=== PATIENT | female | born 1930 | race Caucasian/White ===

== ENCOUNTER 2019-12-27 09:19 | Emergency (ER) | payer MEDICARE ==
--- NOTE | 2019-12-27 11:30 | RAD ---
TWO VIEWS LEFT HIP: COMPARISON: None. HISTORY: Left hip injury with pain. FINDINGS: Two views of the left hip show no evidence of acute fracture or dislocation. No degenerative changes are seen. Vascular calcifications are present. IMPRESSION: No evidence of acute osseous abnormality. POS: [facility]
== END 2019-12-27 11:00 | disposition home or self-care (01) ==
LOC: MADERS 09:19
DX: S76.012A Strain of muscle, fascia and tendon of left hip, initial encounter (principal); W18.30XA Fall on same level, unspecified, initial encounter

== ENCOUNTER 2020-05-26 13:59 | Emergency (ER) | payer MEDICARE ==
[2020-05-26 14:46] LABS: #Basophils 0.1 thou/uL (0.0-0.2); #Eosinphils 0.1 thou/uL (0.0-0.7); #Lymphocytes 2.4 thou/uL (1.20-3.40); #Monocytes 0.4 thou/uL (0.11-0.59); %Basophils 0.7 % (0.0-1.0); %Lymphocytes 23.9 % (21.0-51.0); %Monocytes 4.3 % (0.0-10.0); %Neutrophils 70.1 % (42.0-75.0); Hemoglobin 11.8 g/dL (12.0-16.0); Mean Corpuscular HGB CONC 33.8 g/dL (32.0-36.0); Mean Corpuscular Hemoglobin 31.3 pg (27.0-31.0); Mean Corpuscular Volume 92.5 fL (78.0-98.0); Platelet Count 203 thou/uL (130-400); Red Blood Cell (RBC) Count 3.77 mill/uL (4.20-5.40)
[2020-05-26 14:54] LABS: Prothrombin Time 12.9 sec (12.0-14.7)
[2020-05-26 15:04] LABS: ALT (SGPT) 15 U/L (8-55); AST (SGOT) 25 U/L (5-34); Albumin 3.2 g/dL (3.4-4.8); Alkaline Phosphatase 74 U/L (40-110); Anion Gap 15 mmol/L (10-20); BUN (Urea Nitrogen) 8 mg/dL (9.8-20.1); Bilirubin, Total 0.5 mg/dL (0.2-1.2); Calc. Creatinine Clearance 0 mL/min (70-130); Calcium 8.6 mg/dL (7.8-10.44); Carbon Dioxide 25 mmol/L (23-31); Chloride 98 mmol/L (98-107); Estimated GFR-MDRD 73; Globulin 3.6 g/dL (2.4-3.5); Glucose 95 mg/dL (83-110); Potassium 4.7 mmol/L (3.5-5.1); Protein, Total 6.8 g/dL (6.0-8.3); Sodium 133 mmol/L (136-145)
[2020-05-26] MEDS ORDERED: Boostrix 0.5 ML (Tdap) VIAL ONE (15:05)
[2020-05-26] MEDS ORDERED: Lidocaine 1% w/Epinephrine 1:100K 20 ML VIAL ONE (15:05)
--- NOTE | 2020-05-26 15:19 | RAD ---
Exam: Chest one view HISTORY:Fall. Pain. Comparison: None FINDINGS: Cardiac silhouette: Normal Aorta: Unremarkable Pulmonary vessels: Normal Costophrenic angles: Clear LUNGS: Chronic lung parenchymal changes. No masses or consolidation. There is diffuse bony mineraliza tion. Pneumothorax: None Osseous abnormalities: Diffuse bone utilization. Presumed multiple remote compression deformities of the thoracic and lumbar spine. IMPRESSION: No acute cardiopulmonary process.
--- NOTE | 2020-05-26 15:20 | CT ---
CT BRAIN WITHOUT CONTRAST: Date: 05/26/2020 HISTORY: Fall. Headache. FINDINGS: There are changes of cortical atrophy and chronic small vessel ischemic disease. The ventricular size is appropriate and the basilar cisterns are patent. No evidence of acute infarct, hemorrhage, midline shift, or abnormal extra-axial fluid collections ar e seen. The bony calvarium is intact. The visualized paranasal sinuses and mastoid air cells are well aerated. IMPRESSION: No CT evidence of acute intracranial process. POS: [facility]
--- NOTE | 2020-05-26 15:20 | RAD ---
Exam: 2 views lumbar spine HISTORY: Fall. Pain FINDINGS: Diffuse bony mineralization. There appear to be multiple compression fractures involving th e distal thoracic and lumbar spine. There appears be vertebra plana at L1. Moderate loss of vertebral body height at L2, L3 and T12. Additionally there is moderate loss of vertebral height at T 10. Given the overall diffuse nature of the bony mineralization of the thoracic and lumbar spine, there is point tenderness and a concern for fracture noncontrast MRI can be performed. Visualized sacrum and bony pelvis appear to be intact IMPRESSION: 1. No obvious acute fracture. There is diffuse bone demineralization which limits evaluation. If ther e is concern for acute on chronic injury, consider MRI.
--- NOTE | 2020-05-26 15:22 | CT ---
CT CERVICAL SPINE WITHOUT CONTRAST: Date: 05/26/2020 HISTORY: Fall. FINDINGS/IMPRESSION: Multilevel degenerative changes are present. No acute fracture, subluxation, or facet malalignment is seen. There is scarring in the lung apices. There is a 1.0 cm nodule in the left upper lobe. This should be evaluated with a PET scan. CODE T. CODE LN.
--- NOTE | 2020-05-26 15:27 | RAD ---
Exam: Pelvis 1 view HISTORY: Pain. Fall. FINDINGS: Diffuse bone demineralization. Limited option the sacral ala and iliac wings. No definite p elvic fracture. Symmetric hip joint spaces. Visualized left and right femur are intact. Obturator rings are intact. Atherosclerosis is noted IMPRESSION: No radiographic evidence of fracture. Additional imaging if clinically concern for possib le radiographically occult fracture.
[2020-05-26] MEDS ORDERED: Ibuprofen 600 MG TAB ONE (15:57)
--- NOTE | 2020-05-26 16:52 | CT ---
CT right hip noncontrast HISTORY: Fall. Injury. FINDINGS: Mild joint space narrowing, osteophytosis, and subchondral sclerosis. Femoral head contour is maintained. No acute fracture or dislocation are apparent. Diverticula arise from the colon partially visualized. Calcification in the arterial structures. 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 No evidence of fracture. Atherosclerosis.
== END 2020-05-26 18:00 | disposition short-term general hospital (02) ==
LOC: MADERS 13:59
DX: S01.01XA Laceration without foreign body of scalp, initial encounter (principal); R55 Syncope and collapse; R91.1 Solitary pulmonary nodule; W19.XXXA Unspecified fall, initial encounter; Y92.89 Other specified places as the place of occurrence of the external cause
CPT/HCPCS: 70450; 71045; 72100; 72125; 72170; 80053; 83880; 84484; 85025; 85610; 90715; 93005

== ENCOUNTER 2020-06-26 19:23 | Emergency (ER) | payer MEDICARE ==
[2020-06-26 20:31] LABS: #Basophils 0.1 thou/uL (0.0-0.2); #Eosinphils 0.3 thou/uL (0.0-0.7); #Lymphocytes 2.9 thou/uL (1.20-3.40); #Monocytes 0.6 thou/uL (0.11-0.59); #Neutrophils 2.4 thou/uL (1.40-6.50); %Basophils 1.5 % (0.0-1.0); %Eosinophils 4.4 % (0.0-10.0); %Lymphocytes 46.8 % (21.0-51.0); %Neutrophils 38.3 % (42.0-75.0); Hemoglobin 12.5 g/dL (12.0-16.0); Mean Corpuscular HGB CONC 32.2 g/dL (32.0-36.0); Mean Corpuscular Volume 96.4 fL (78.0-98.0); Mean Platelet Volume 7.9 fL (7.4-10.4); Platelet Count 145 thou/uL (130-400); RBC Distribution Width 11.7 % (11.5-14.5); Red Blood Cell (RBC) Count 4.02 mill/uL (4.20-5.40); White Blood Cell (WBC) Count 6.2 thou/uL (4.8-10.8)
[2020-06-26] MEDS ORDERED: Acetaminophen 500 MG TAB ONE (20:31)
--- NOTE | 2020-06-26 20:32 | RAD ---
PORTABLE CHEST: 06/26/20 HISTORY: Altered mental status. COMPARISON: 05/26/20 exam. Heart size appears borderline in size considering portable technique. Chronic appearing lung changes are seen without focal infiltrative process. IMPRESSION: Chronic appearing lung change. POS: OFF
[2020-06-26 20:43] LABS: ALT (SGPT) 8 U/L (8-55); AST (SGOT) 24 U/L (5-34); Albumin 3.5 g/dL (3.4-4.8); Alkaline Phosphatase 122 U/L (40-110); Anion Gap 14 mmol/L (10-20); BUN (Urea Nitrogen) 10 mg/dL (9.8-20.1); Bilirubin, Total 0.5 mg/dL (0.2-1.2); CK (CPK) 38 U/L (29-168); Calc. Creatinine Clearance 0 mL/min (70-130); Calcium 8.7 mg/dL (7.8-10.44); Carbon Dioxide 25 mmol/L (23-31); Chloride 98 mmol/L (98-107); Estimated GFR-MDRD 75; Globulin 3.6 g/dL (2.4-3.5); Glucose 95 mg/dL (83-110); Potassium 4.2 mmol/L (3.5-5.1); Protein, Total 7.1 g/dL (6.0-8.3); Sodium 133 mmol/L (136-145)
[2020-06-26 21:11] LABS: Bilirubin Negative (Negative); Blood, Urine Trace (Negative); Clarity Clear (Clear); Glucose, Urine (Dipstick) Negative (Negative); Ketone, Urine Negative (Negative); Leukocyte Negative (Negative); Nitrite Negative (Negative); Protein, Urine (Dipstick) Negative (Neg-Trace); Urobilinogen 0.2 mg/dL (Less than 2)
[2020-06-26 21:27] LABS: Bacteria/HPF Rare-Few HPF (None Seen); RBC/HPF 0-3 HPF (0-3); Squamous Epithelial None Seen HPF (0-3)
[2020-06-26] MEDS ORDERED: Sodium Chloride 0.9% 1,000 ML ONE (21:35)
--- NOTE | 2020-06-26 21:56 | CT ---
CT OF BRAIN PERFORMED WITHOUT CONTRAST ENHANCEMENT: 06/26/20 HISTORY: Altered mental status. COMPARISON: 05/26/20 study. There is moderate atrophy and chronic white matter changes seen. There is no signs of intracerebral h emorrhage or extra-axial fluid collections. The mastoid air cells and visualized sinuses are clear. IMPRESSION: No acute intracranial abnormalities. POS: OFF
[2020-06-26] MEDS ORDERED: cefTRIAXone\\ROCEPHIN 1 GM VIAL ONE (22:14)
[2020-06-26] MEDS ORDERED: Sodium Chloride 0.9% 100 ML ONE (22:14)
== END 2020-06-26 22:37 | disposition home or self-care (01) ==
LOC: MADERS 19:23
DX: E86.0 Dehydration (principal); N39.0 Urinary tract infection, site not specified
CPT/HCPCS: 51701; 70450; 71045; 80053; 81003; 81015; 82550; 84443; 85025; 87086; 94760; 96374; J0696; J3490; J7050

== ENCOUNTER 2021-12-20 09:18 | Emergency (ER) | payer MEDICARE | END 2021-12-20 10:55 | disposition home or self-care (01) | LOC: MADERS 09:18 | DX: S83.92XA Sprain of unspecified site of left knee, initial encounter (principal); S80.12XA Contusion of left lower leg, initial encounter; G40.909 Epilepsy, unspecified, not intractable, without status epilepticus; W19.XXXA Unspecified fall, initial encounter ==

== ENCOUNTER 2022-02-28 16:22 | Outpatient (CLI) | payer MEDICARE | END 2022-02-28 16:23 | disposition home or self-care (01) | LOC: MADRAD 16:22 | PROVIDERS: ATTEND Physician Assistant | DX: R05.9 Cough, unspecified (principal) | CPT/HCPCS: 71046 ==

== ENCOUNTER 2022-04-23 08:49 | Emergency (ER) | payer MEDICARE ==
[2022-04-23] MEDS ORDERED: Sodium Chloride 0.9% 1,000 ML ONE (09:51)
[2022-04-23] MEDS ORDERED: Morphine 2 MG/ML VIAL ONE (09:51)
[2022-04-23 10:05] LABS: #Basophils 0.1 thou/uL (0.0-0.2); #Eosinphils 0.1 thou/uL (0.0-0.7); #Lymphocytes 1.1 thou/uL (1.20-3.40); #Monocytes 0.6 thou/uL (0.11-0.59); #Neutrophils 7.6 thou/uL (1.40-6.50); %Basophils 0.9 % (0.0-1.0); %Eosinophils 0.6 % (0.0-10.0); %Lymphocytes 11.3 % (21.0-51.0); %Monocytes 6.5 % (0.0-10.0); %Neutrophils 80.7 % (42.0-75.0); Hemoglobin 11.5 g/dL (12.0-16.0); Mean Corpuscular HGB CONC 32.6 g/dL (32.0-36.0); Mean Corpuscular Hemoglobin 31.9 pg (27.0-31.0); Mean Corpuscular Volume 97.8 fL (78.0-98.0); Mean Platelet Volume 7.8 fL (7.4-10.4); Platelet Count 97 thou/uL (130-400); RBC Distribution Width 12.3 % (11.5-14.5); Red Blood Cell (RBC) Count 3.61 mill/uL (4.20-5.40); White Blood Cell (WBC) Count 9.5 thou/uL (4.8-10.8)
[2022-04-23 10:06] LABS: Hypochromia SLIGHT = 6-15 cells (100X) (0-5/hpf); MDiff Complete? YES; Platelet Morphology Comment Appears Decreased
[2022-04-23 10:10] LABS: Anion Gap 12 mmol/L (10-20); BUN (Urea Nitrogen) 17 mg/dL (9.8-20.1); Calc. Creatinine Clearance 0 mL/min (70-130); Calcium 8.5 mg/dL (7.8-10.44); Carbon Dioxide 24 mmol/L (23-31); Chloride 108 mmol/L (98-107); Estimated GFR 79; Glucose 114 mg/dL (83-110); Sodium 140 mmol/L (136-145)
[2022-04-23 10:52] LABS: Bilirubin Negative (Negative); Blood, Urine Moderate (Negative); Clarity Cloudy (Clear); Glucose, Urine (Dipstick) Negative (Negative); Ketone, Urine 15 mg/dL (Negative); Leukocyte Large (Negative); Nitrite Positive (Negative); Protein, Urine (Dipstick) 30 mg/dL (Neg-Trace); Specific Gravity, Urine 1.025 (1.005-1.030); pH, Urine 5.5 (5.0-9.0)
[2022-04-23 11:02] LABS: Bacteria/HPF 4+ HPF (None Seen); RBC/HPF 21-50 HPF (0-3); Squamous Epithelial None Seen HPF (0-3); WBC/HPF Greater Than 50 HPF (0-3)
[2022-04-23] MEDS ORDERED: cefTRIAXone\\ROCEPHIN 1 GM VIAL ONE (14:05)
[2022-04-23] MEDS ORDERED: Sodium Chloride 0.9% 100 ML ONE (14:05)
== END 2022-04-23 14:38 | disposition short-term general hospital (02) ==
LOC: MADERS 08:49
DX: S72.012A Unspecified intracapsular fracture of left femur, initial encounter for closed fracture (principal); S32.10XA Unspecified fracture of sacrum, initial encounter for closed fracture; W18.30XA Fall on same level, unspecified, initial encounter; Z95.0 Presence of cardiac pacemaker
CPT/HCPCS: 36415; 51702; 71045; 72192; 80048; 81003; 81015; 83605; 85025; 93005; 96365; 96375; J0696; J2270; J3490; J7050

== ENCOUNTER 2022-04-29 15:06 | Inpatient (IN) | payer MEDICARE ==
[2022-04-29 15:45] VITALS: BMI 16.2
[2022-04-29] MEDS: Acetaminophen 325 MG TAB PO SCH (18:06)
[2022-04-29] MEDS: Aspirin 81 mg Enteric Coated Tablet PO SCH (21:48)
[2022-04-29] MEDS: Senokot S 8.6-50 MG TAB PO SCH (21:48)
[2022-04-30] MEDS: Acetaminophen 325 MG TAB PO SCH (01:08)
[2022-04-30] MEDS: Ascorbic Acid 500 mg Chewable Tablet PO SCH (08:42)
[2022-04-30] MEDS: Aspirin 81 mg Enteric Coated Tablet PO SCH ×2 (08:42→22:03)
[2022-04-30] MEDS: Senokot S 8.6-50 MG TAB PO SCH ×3 (08:45→22:03)
[2022-04-30 08:48] LABS: Hemoglobin 7.2 g/dL (12.0-16.0); Mean Corpuscular HGB CONC 33.6 g/dL (32.0-36.0); Mean Corpuscular Hemoglobin 33.3 pg (27.0-31.0); Mean Platelet Volume 7.5 fL (7.4-10.4); Platelet Count 180 thou/uL (130-400); RBC Distribution Width 15.1 % (11.5-14.5); Red Blood Cell (RBC) Count 2.18 mill/uL (4.20-5.40); White Blood Cell (WBC) Count 8.9 thou/uL (4.8-10.8)
[2022-04-30] MEDS ORDERED: Ferrous Sulfate 325 MG TAB PO SCH (09:00)
[2022-04-30 09:02] LABS: Anion Gap 9 mmol/L (10-20); BUN (Urea Nitrogen) 14 mg/dL (9.8-20.1); Calc. Creatinine Clearance 49 mL/min (70-130); Calcium 7.6 mg/dL (7.8-10.44); Carbon Dioxide 26 mmol/L (23-31); Chloride 105 mmol/L (98-107); Estimated GFR 88; Glucose 95 mg/dL (83-110); Potassium 3.3 mmol/L (3.5-5.1); Sodium 137 mmol/L (136-145)
[2022-04-30] MEDS ORDERED: Potassium Chloride 20 MEQ TAB PO SCH (13:13)
[2022-04-30] MEDS: Ibuprofen 800 MG TAB PO PRN (14:34)
[2022-04-30] MEDS: Ferrous Sulfate 325 MG TAB PO SCH (17:21)
[2022-05-01 05:29] LABS: Hemoglobin 7.2 g/dL (12.0-16.0); Mean Corpuscular HGB CONC 33.8 g/dL (32.0-36.0); Mean Corpuscular Hemoglobin 33.7 pg (27.0-31.0); Mean Corpuscular Volume 99.7 fL (78.0-98.0); Mean Platelet Volume 7.2 fL (7.4-10.4); Platelet Count 166 thou/uL (130-400); RBC Distribution Width 16.6 % (11.5-14.5); Red Blood Cell (RBC) Count 2.13 mill/uL (4.20-5.40); White Blood Cell (WBC) Count 7.2 thou/uL (4.8-10.8)
[2022-05-01] MEDS: Ferrous Sulfate 325 MG TAB PO SCH (08:35)
[2022-05-01] MEDS: Ascorbic Acid 500 mg Chewable Tablet PO SCH (08:35)
[2022-05-01] MEDS: Potassium Chloride 20 MEQ TAB PO SCH (08:35)
[2022-05-01] MEDS: Aspirin 81 mg Enteric Coated Tablet PO SCH ×2 (08:36→20:49)
[2022-05-01] MEDS: Senokot S 8.6-50 MG TAB PO SCH (08:36)
[2022-05-01] MEDS ORDERED: Famotidine 20 MG TAB PO SCH (10:15)
[2022-05-02] MEDS: Acetaminophen 325 MG TAB PO SCH ×3 (01:11→12:08)
[2022-05-02 05:34] LABS: Hemoglobin 7.7 g/dL (12.0-16.0); Mean Corpuscular Hemoglobin 33.1 pg (27.0-31.0); Mean Corpuscular Volume 100.3 fL (78.0-98.0); Mean Platelet Volume 6.9 fL (7.4-10.4); Platelet Count 177 thou/uL (130-400); RBC Distribution Width 16.8 % (11.5-14.5); Red Blood Cell (RBC) Count 2.34 mill/uL (4.20-5.40); White Blood Cell (WBC) Count 7.7 thou/uL (4.8-10.8)
[2022-05-02 05:51] LABS: Anion Gap 11 mmol/L (10-20); BUN (Urea Nitrogen) 10 mg/dL (9.8-20.1); Calc. Creatinine Clearance 49 mL/min (70-130); Calcium 7.8 mg/dL (7.8-10.44); Carbon Dioxide 24 mmol/L (23-31); Chloride 105 mmol/L (98-107); Estimated GFR 88; Glucose 88 mg/dL (83-110); Potassium 3.7 mmol/L (3.5-5.1); Sodium 136 mmol/L (136-145)
[2022-05-02] MEDS: Potassium Chloride 20 MEQ TAB PO SCH (09:30)
[2022-05-02] MEDS: Ascorbic Acid 500 mg Chewable Tablet PO SCH (09:30)
[2022-05-02] MEDS: Famotidine 20 MG TAB PO SCH (09:30)
[2022-05-02] MEDS: Ferrous Sulfate 325 MG TAB PO SCH (09:31)
[2022-05-02] MEDS: Aspirin 81 mg Enteric Coated Tablet PO SCH (09:33)
[2022-05-02] MEDS: Aspirin Chewable 81 MG TAB PO SCH (21:22)
[2022-05-03] MEDS: Aspirin Chewable 81 MG TAB PO SCH ×2 (08:27→20:49)
[2022-05-03] MEDS: Ascorbic Acid 500 mg Chewable Tablet PO SCH (08:27)
[2022-05-03] MEDS: Potassium Bicarbonate/Cit Ac 20 MEQ TAB PO SCH (08:27)
[2022-05-03] MEDS: Famotidine 20 MG TAB PO SCH (08:27)
[2022-05-03] MEDS: Ibuprofen 800 MG TAB PO PRN (20:49)
[2022-05-04] MEDS: Aspirin Chewable 81 MG TAB PO SCH ×2 (08:17→21:03)
[2022-05-04] MEDS: Potassium Bicarbonate/Cit Ac 20 MEQ TAB PO SCH (08:17)
[2022-05-04] MEDS: Famotidine 20 MG TAB PO SCH (08:18)
[2022-05-04] MEDS: Ascorbic Acid 500 mg Chewable Tablet PO SCH (08:18)
[2022-05-05] MEDS: Famotidine 20 MG TAB PO SCH (08:10)
[2022-05-05] MEDS: Aspirin Chewable 81 MG TAB PO SCH ×2 (08:10→21:47)
[2022-05-05] MEDS: Potassium Bicarbonate/Cit Ac 20 MEQ TAB PO SCH (08:10)
[2022-05-05] MEDS: Ascorbic Acid 500 mg Chewable Tablet PO SCH (08:10)
[2022-05-06 07:14] LABS: Hemoglobin 7.2 g/dL (12.0-16.0); Mean Corpuscular HGB CONC 32.1 g/dL (32.0-36.0); Mean Corpuscular Hemoglobin 33.6 pg (27.0-31.0); Mean Corpuscular Volume 104.8 fL (78.0-98.0); Mean Platelet Volume 6.9 fL (7.4-10.4); Platelet Count 196 thou/uL (130-400); RBC Distribution Width 16.4 % (11.5-14.5); Red Blood Cell (RBC) Count 2.15 mill/uL (4.20-5.40); White Blood Cell (WBC) Count 5.6 thou/uL (4.8-10.8)
[2022-05-06] MEDS: Aspirin Chewable 81 MG TAB PO SCH ×2 (08:46→21:38)
[2022-05-06] MEDS: Potassium Bicarbonate/Cit Ac 20 MEQ TAB PO SCH (08:46)
[2022-05-06] MEDS: Ascorbic Acid 500 mg Chewable Tablet PO SCH (08:46)
[2022-05-06] MEDS: Famotidine 20 MG TAB PO SCH (08:46)
[2022-05-07 06:04] LABS: Hemoglobin 7.4 g/dL (12.0-16.0); Mean Corpuscular HGB CONC 31.6 g/dL (32.0-36.0); Mean Corpuscular Hemoglobin 33.1 pg (27.0-31.0); Mean Corpuscular Volume 104.6 fL (78.0-98.0); Mean Platelet Volume 6.7 fL (7.4-10.4); Platelet Count 194 thou/uL (130-400); Red Blood Cell (RBC) Count 2.25 mill/uL (4.20-5.40); White Blood Cell (WBC) Count 5.7 thou/uL (4.8-10.8)
[2022-05-07] MEDS: Famotidine 20 MG TAB PO SCH (08:41)
[2022-05-07] MEDS: Aspirin Chewable 81 MG TAB PO SCH ×2 (08:41→20:03)
[2022-05-07] MEDS: Ascorbic Acid 500 mg Chewable Tablet PO SCH (08:41)
[2022-05-07] MEDS: Potassium Bicarbonate/Cit Ac 20 MEQ TAB PO SCH (08:41)
[2022-05-07] MEDS: diphenhydrAMINE 25 MG CAP PO PRN ×2 (15:58→20:00)
[2022-05-07] MEDS: Acetaminophen 500 MG TAB PO PRN ×2 (15:59→20:02)
[2022-05-08 07:33] LABS: Hemoglobin 11.1 g/dL (12.0-16.0)
[2022-05-08] MEDS: Famotidine 20 MG TAB PO SCH (09:17)
[2022-05-08] MEDS: Aspirin Chewable 81 MG TAB PO SCH ×2 (09:17→21:10)
[2022-05-08] MEDS: Potassium Bicarbonate/Cit Ac 20 MEQ TAB PO SCH (09:17)
[2022-05-08] MEDS: Ascorbic Acid 500 mg Chewable Tablet PO SCH (09:17)
[2022-05-08] MEDS: Acetaminophen 500 MG TAB PO PRN (21:10)
[2022-05-09] MEDS: Potassium Bicarbonate/Cit Ac 20 MEQ TAB PO SCH (08:42)
[2022-05-09] MEDS: Aspirin Chewable 81 MG TAB PO SCH ×2 (08:42→20:52)
[2022-05-09] MEDS: Famotidine 20 MG TAB PO SCH (08:44)
[2022-05-09] MEDS: Ascorbic Acid 500 mg Chewable Tablet PO SCH (08:44)
[2022-05-09] MEDS ORDERED: Lantiseptic Ointment 130 GM JAR TOP PRN (11:40)
[2022-05-09] MEDS: Ibuprofen 800 MG TAB PO PRN (20:50)
[2022-05-09] MEDS: Lantiseptic Ointment 130 GM JAR TOP SCH (20:53)
[2022-05-10] MEDS: Ascorbic Acid 500 mg Chewable Tablet PO SCH (08:11)
[2022-05-10] MEDS: Potassium Bicarbonate/Cit Ac 20 MEQ TAB PO SCH (08:11)
[2022-05-10] MEDS: Famotidine 20 MG TAB PO SCH (08:11)
[2022-05-10] MEDS: Lantiseptic Ointment 130 GM JAR TOP SCH ×2 (08:11→21:06)
[2022-05-10] MEDS: Aspirin Chewable 81 MG TAB PO SCH ×2 (08:11→21:05)
[2022-05-11] MEDS: Ascorbic Acid 500 mg Chewable Tablet PO SCH (09:14)
[2022-05-11] MEDS: Famotidine 20 MG TAB PO SCH (09:14)
[2022-05-11] MEDS: Aspirin Chewable 81 MG TAB PO SCH ×2 (09:14→20:41)
[2022-05-11] MEDS: Potassium Bicarbonate/Cit Ac 20 MEQ TAB PO SCH (09:14)
[2022-05-11] MEDS: Lantiseptic Ointment 130 GM JAR TOP SCH ×2 (09:15→20:42)
[2022-05-11] MEDS ORDERED: Ibuprofen 600 MG TAB ONE (09:40)
[2022-05-11] MEDS ORDERED: Ondansetron ODT 4 MG TAB ONE (09:40)
[2022-05-12] MEDS: Ascorbic Acid 500 mg Chewable Tablet PO SCH (08:53)
[2022-05-12] MEDS: Aspirin Chewable 81 MG TAB PO SCH ×2 (08:53→20:52)
[2022-05-12] MEDS: Famotidine 20 MG TAB PO SCH (08:53)
[2022-05-12] MEDS: Potassium Bicarbonate/Cit Ac 20 MEQ TAB PO SCH (08:53)
[2022-05-12] MEDS: Lantiseptic Ointment 130 GM JAR TOP SCH ×2 (08:55→20:55)
[2022-05-12] MEDS: Ibuprofen 800 MG TAB PO PRN (20:53)
[2022-05-13 08:17] VITALS: BP 119/68; TEMP 98.1
[2022-05-13] MEDS: Ascorbic Acid 500 mg Chewable Tablet PO SCH (08:37)
[2022-05-13] MEDS: Potassium Bicarbonate/Cit Ac 20 MEQ TAB PO SCH (08:38)
[2022-05-13] MEDS: Aspirin Chewable 81 MG TAB PO SCH (08:38)
[2022-05-13] MEDS: Famotidine 20 MG TAB PO SCH (08:38)
[2022-05-13] MEDS: Lantiseptic Ointment 130 GM JAR TOP SCH (08:39)
== END 2022-05-13 13:50 | disposition home health service (06) | DRG 560 ==
LOC: MADMS 15:24
PROVIDERS: ADMIT Family Medicine; ATTEND Family Medicine
PROC: 30233N1 Transfusion of Nonautologous Red Blood Cells into Peripheral Vein, Percutaneous Approach (ICD-10-PCS; principal; 2022-05-07)
DX: S72.012D Unspecified intracapsular fracture of left femur, subsequent encounter for closed fracture with routine healing (principal); D62 Acute posthemorrhagic anemia; F03.91 Unspecified dementia, unspecified severity, with behavioral disturbance; Z66 Do not resuscitate; R53.81 Other malaise; R62.7 Adult failure to thrive; G47.00 Insomnia, unspecified; R53.1 Weakness; R26.81 Unsteadiness on feet; E87.6 Hypokalemia; S22.31XD Fracture of one rib, right side, subsequent encounter for fracture with routine healing; Z95.0 Presence of cardiac pacemaker; Z79.82 Long term (current) use of aspirin; Z82.49 Family history of ischemic heart disease and other diseases of the circulatory system; Z79.899 Other long term (current) drug therapy; Z20.822 Contact with and (suspected) exposure to COVID-19
CPT/HCPCS: 36415; 36430; 80048; 82274; 85014; 85018; 85027; 86850; 86900; 86901; J7620; P9016; Q0162; U0003; U0005

== ENCOUNTER 2022-06-24 08:30 | Emergency (ER) | payer BC, MEDICARE ==
[2022-06-24] MEDS ORDERED: Fentanyl 100 MCG/2 ML VIAL ONE (09:16)
[2022-06-24] MEDS ORDERED: Bacitracin 1 PK ONE (09:16)
[2022-06-24] MEDS ORDERED: Boostrix 0.5 ML (Tdap) VIAL (>/=7 yrs of age) ONE (09:16)
[2022-06-24 09:36] LABS: #Basophils 0.1 thou/uL (0.0-0.2); #Eosinphils 0.1 thou/uL (0.0-0.7); #Lymphocytes 3.3 thou/uL (1.20-3.40); #Monocytes 0.7 thou/uL (0.11-0.59); #Neutrophils 7.9 thou/uL (1.40-6.50); %Basophils 0.7 % (0.0-1.0); %Lymphocytes 27.2 % (21.0-51.0); %Monocytes 5.4 % (0.0-10.0); %Neutrophils 65.6 % (42.0-75.0); Hemoglobin 12.6 g/dL (12.0-16.0); Mean Corpuscular HGB CONC 33.2 g/dL (32.0-36.0); Mean Corpuscular Hemoglobin 32.6 pg (27.0-31.0); Mean Corpuscular Volume 98.1 fL (78.0-98.0); Mean Platelet Volume 7.2 fL (7.4-10.4); Platelet Count 162 thou/uL (130-400); RBC Distribution Width 12.6 % (11.5-14.5); Red Blood Cell (RBC) Count 3.88 mill/uL (4.20-5.40)
[2022-06-24 09:54] LABS: ALT (SGPT) 13 U/L (8-55); AST (SGOT) 25 U/L (5-34); Albumin 2.8 g/dL (3.4-4.8); Alkaline Phosphatase 96 U/L (40-110); Anion Gap 11 mmol/L (10-20); BUN (Urea Nitrogen) 11 mg/dL (9.8-20.1); Bilirubin, Total 0.7 mg/dL (0.2-1.2); Calc. Creatinine Clearance 0 mL/min (70-130); Calcium 8.8 mg/dL (7.8-10.44); Carbon Dioxide 26 mmol/L (23-31); Chloride 105 mmol/L (98-107); Estimated GFR 84; Globulin 3.4 g/dL (2.4-3.5); Glucose 109 mg/dL (83-110); Potassium 3.8 mmol/L (3.5-5.1); Protein, Total 6.2 g/dL (5.8-8.1); Sodium 138 mmol/L (136-145)
[2022-06-24 10:37] LABS: SARS-CoV-2 NAA Rapid Test Not Detected (NotDetected)
== END 2022-06-24 12:47 | disposition short-term general hospital (02) ==
LOC: MADERS 08:30
DX: S72.141A Displaced intertrochanteric fracture of right femur, initial encounter for closed fracture (principal); Z20.822 Contact with and (suspected) exposure to COVID-19; W19.XXXA Unspecified fall, initial encounter
CPT/HCPCS: 36415; 70450; 71045; 72125; 72170; 80053; 84484; 85025; 90715; 93005; 94760; 96374; G0390; J3010; U0002

== ENCOUNTER 2022-06-30 16:55 | Inpatient (IN) | payer MEDICARE ==
[2022-06-30] MEDS: Aspirin 81 mg Enteric Coated Tablet PO SCH (21:19)
[2022-06-30] MEDS: Ascorbic Acid 500 mg Chewable Tablet PO SCH (21:19)
[2022-06-30] MEDS: Lantiseptic Ointment 130 GM JAR TOP SCH (21:19)
[2022-07-01] MEDS: Acetaminophen/Codeine 30-300mg Tablet PO SCH ×4 (00:28→17:58)
[2022-07-01 05:27] LABS: #Eosinphils 0.3 thou/uL (0.0-0.7); #Lymphocytes 2.4 thou/uL (1.20-3.40); #Monocytes 0.7 thou/uL (0.11-0.59); #Neutrophils 4.4 thou/uL (1.40-6.50); %Basophils 0.4 % (0.0-1.0); %Eosinophils 4.1 % (0.0-10.0); %Lymphocytes 31.1 % (21.0-51.0); %Monocytes 8.4 % (0.0-10.0); %Neutrophils 55.9 % (42.0-75.0); Hemoglobin 9.5 g/dL (12.0-16.0); Mean Corpuscular Hemoglobin 32.7 pg (27.0-31.0); Mean Corpuscular Volume 96.3 fl (78.0-98.0); Mean Platelet Volume 6.7 fL (7.4-10.4); Platelet Count 165 thou/uL (130-400); RBC Distribution Width 14.1 % (11.5-14.5); Red Blood Cell (RBC) Count 2.89 mill/uL (4.20-5.40); White Blood Cell (WBC) Count 7.8 thou/uL (4.8-10.8)
[2022-07-01 05:34] LABS: Anion Gap 10 mmol/L (10-20); BUN (Urea Nitrogen) 9 mg/dL (9.8-20.1); Calc. Creatinine Clearance 48 mL/min (70-130); Calcium 7.9 mg/dL (7.8-10.44); Carbon Dioxide 24 mmol/L (23-31); Chloride 103 mmol/L (98-107); Estimated GFR 89; Glucose 93 mg/dL (83-110); Sodium 133 mmol/L (136-145)
[2022-07-01] MEDS: Ferrous Sulfate 325 MG TAB PO SCH ×2 (08:30→17:06)
[2022-07-01] MEDS: Aspirin 81 mg Enteric Coated Tablet PO SCH ×2 (08:30→21:13)
[2022-07-01] MEDS: Lantiseptic Ointment 130 GM JAR TOP SCH ×2 (08:30→21:14)
[2022-07-01] MEDS: Senokot 8.6 MG TAB PO SCH (08:30)
[2022-07-01] MEDS: Ascorbic Acid 500 mg Chewable Tablet PO SCH ×2 (08:30→21:13)
[2022-07-02] MEDS: Acetaminophen/Codeine 30-300mg Tablet PO SCH ×4 (01:06→17:10)
[2022-07-02] MEDS: Ferrous Sulfate 325 MG TAB PO SCH ×2 (08:20→17:10)
[2022-07-02] MEDS: Senokot 8.6 MG TAB PO SCH (08:20)
[2022-07-02] MEDS: Aspirin 81 mg Enteric Coated Tablet PO SCH ×2 (08:20→21:43)
[2022-07-02] MEDS: Ascorbic Acid 500 mg Chewable Tablet PO SCH ×2 (08:21→21:43)
[2022-07-02] MEDS: Lantiseptic Ointment 130 GM JAR TOP SCH ×2 (08:28→21:50)
[2022-07-03] MEDS: Acetaminophen/Codeine 30-300mg Tablet PO SCH ×5 (01:52→23:30)
[2022-07-03] MEDS: Aspirin 81 mg Enteric Coated Tablet PO SCH ×2 (08:37→20:13)
[2022-07-03] MEDS: Ferrous Sulfate 325 MG TAB PO SCH ×2 (08:37→17:01)
[2022-07-03] MEDS: Senokot 8.6 MG TAB PO SCH (08:37)
[2022-07-03] MEDS: Ascorbic Acid 500 mg Chewable Tablet PO SCH ×2 (08:37→20:13)
[2022-07-03] MEDS: Lantiseptic Ointment 130 GM JAR TOP SCH ×2 (08:38→20:21)
[2022-07-04] MEDS: Acetaminophen/Codeine 30-300mg Tablet PO SCH ×3 (05:19→17:29)
[2022-07-04] MEDS: Ascorbic Acid 500 mg Chewable Tablet PO SCH ×2 (08:15→20:43)
[2022-07-04] MEDS: Ferrous Sulfate 325 MG TAB PO SCH ×2 (08:15→17:29)
[2022-07-04] MEDS: Senokot 8.6 MG TAB PO SCH (08:15)
[2022-07-04] MEDS: Aspirin 81 mg Enteric Coated Tablet PO SCH ×2 (08:15→20:42)
[2022-07-04] MEDS: Lantiseptic Ointment 130 GM JAR TOP SCH ×2 (08:16→20:43)
[2022-07-04] MEDS: Mirtazapine 15 MG TAB PO SCH (20:42)
[2022-07-05] MEDS: Acetaminophen/Codeine 30-300mg Tablet PO SCH ×5 (00:48→23:59)
[2022-07-05] MEDS: Aspirin 81 mg Enteric Coated Tablet PO SCH ×2 (08:04→20:33)
[2022-07-05] MEDS: Ascorbic Acid 500 mg Chewable Tablet PO SCH ×2 (08:04→20:33)
[2022-07-05] MEDS: Senokot 8.6 MG TAB PO SCH (08:04)
[2022-07-05] MEDS: Ferrous Sulfate 325 MG TAB PO SCH ×2 (08:04→17:29)
[2022-07-05] MEDS: Lantiseptic Ointment 130 GM JAR TOP SCH ×2 (08:04→20:35)
[2022-07-05] MEDS: Mirtazapine 15 MG TAB PO SCH (20:34)
[2022-07-06] MEDS: Acetaminophen/Codeine 30-300mg Tablet PO SCH ×3 (05:29→17:06)
[2022-07-06] MEDS: Aspirin 81 mg Enteric Coated Tablet PO SCH ×2 (08:37→20:54)
[2022-07-06] MEDS: Ascorbic Acid 500 mg Chewable Tablet PO SCH ×2 (08:37→20:54)
[2022-07-06] MEDS: Ferrous Sulfate 325 MG TAB PO SCH ×2 (08:37→17:06)
[2022-07-06] MEDS: Senokot 8.6 MG TAB PO SCH (08:37)
[2022-07-06] MEDS: Lantiseptic Ointment 130 GM JAR TOP SCH ×2 (08:37→20:55)
[2022-07-06] MEDS: Mirtazapine 15 MG TAB PO SCH (20:54)
[2022-07-07] MEDS: Acetaminophen/Codeine 30-300mg Tablet PO SCH ×5 (00:02→23:37)
[2022-07-07] MEDS: Ascorbic Acid 500 mg Chewable Tablet PO SCH ×2 (08:25→20:49)
[2022-07-07] MEDS: Ferrous Sulfate 325 MG TAB PO SCH ×2 (08:25→17:03)
[2022-07-07] MEDS: Lantiseptic Ointment 130 GM JAR TOP SCH ×2 (08:25→20:50)
[2022-07-07] MEDS: Senokot 8.6 MG TAB PO SCH (08:25)
[2022-07-07] MEDS: Aspirin 81 mg Enteric Coated Tablet PO SCH ×2 (08:25→20:49)
[2022-07-07] MEDS: Mirtazapine 15 MG TAB PO SCH (20:49)
[2022-07-07 21:16] VITALS: BMI 14.5
[2022-07-08] MEDS: Acetaminophen/Codeine 30-300mg Tablet PO SCH ×4 (05:20→23:14)
[2022-07-08] MEDS: Senokot 8.6 MG TAB PO SCH (08:06)
[2022-07-08] MEDS: Ferrous Sulfate 325 MG TAB PO SCH ×2 (08:06→17:10)
[2022-07-08] MEDS: Aspirin 81 mg Enteric Coated Tablet PO SCH ×2 (08:06→20:17)
[2022-07-08] MEDS: Ascorbic Acid 500 mg Chewable Tablet PO SCH ×2 (08:06→20:17)
[2022-07-08] MEDS: Lantiseptic Ointment 130 GM JAR TOP SCH ×2 (08:08→20:33)
[2022-07-08] MEDS: Mirtazapine 15 MG TAB PO SCH (20:15)
[2022-07-09] MEDS: Acetaminophen/Codeine 30-300mg Tablet PO SCH ×4 (05:27→22:01)
[2022-07-09] MEDS: Ascorbic Acid 500 mg Chewable Tablet PO SCH ×2 (08:22→21:41)
[2022-07-09] MEDS: Aspirin 81 mg Enteric Coated Tablet PO SCH ×2 (08:22→21:40)
[2022-07-09] MEDS: Ferrous Sulfate 325 MG TAB PO SCH ×2 (08:22→17:27)
[2022-07-09] MEDS: Lantiseptic Ointment 130 GM JAR TOP SCH ×2 (08:22→21:41)
[2022-07-09] MEDS: Senokot 8.6 MG TAB PO SCH (08:22)
[2022-07-09] MEDS: Mirtazapine 15 MG TAB PO SCH (21:39)
[2022-07-10] MEDS: Acetaminophen/Codeine 30-300mg Tablet PO SCH ×3 (06:03→17:29)
[2022-07-10] MEDS: Lantiseptic Ointment 130 GM JAR TOP SCH ×2 (08:00→21:24)
[2022-07-10] MEDS: Senokot 8.6 MG TAB PO SCH (08:00)
[2022-07-10] MEDS: Ferrous Sulfate 325 MG TAB PO SCH ×2 (08:00→17:30)
[2022-07-10] MEDS: Aspirin 81 mg Enteric Coated Tablet PO SCH ×2 (08:00→21:24)
[2022-07-10] MEDS: Ascorbic Acid 500 mg Chewable Tablet PO SCH ×2 (08:00→21:24)
[2022-07-10] MEDS: Mirtazapine 15 MG TAB PO SCH (21:24)
[2022-07-11] MEDS: Acetaminophen/Codeine 30-300mg Tablet PO SCH ×4 (01:34→17:24)
[2022-07-11] MEDS: Aspirin 81 mg Enteric Coated Tablet PO SCH ×2 (08:17→20:29)
[2022-07-11] MEDS: Senokot 8.6 MG TAB PO SCH ×2 (08:17→20:29)
[2022-07-11] MEDS: Ascorbic Acid 500 mg Chewable Tablet PO SCH ×2 (08:17→20:29)
[2022-07-11] MEDS: Ferrous Sulfate 325 MG TAB PO SCH ×2 (08:18→17:25)
[2022-07-11] MEDS: Lantiseptic Ointment 130 GM JAR TOP SCH ×2 (08:18→20:30)
[2022-07-11] MEDS ORDERED: Bisacodyl 10 MG SUPP PR PRN (13:08)
[2022-07-11] MEDS: Mirtazapine 15 MG TAB PO SCH (20:29)
[2022-07-12] MEDS: Acetaminophen/Codeine 30-300mg Tablet PO SCH ×4 (00:43→17:26)
[2022-07-12] MEDS: Aspirin 81 mg Enteric Coated Tablet PO SCH ×2 (09:05→21:10)
[2022-07-12] MEDS: Ferrous Sulfate 325 MG TAB PO SCH ×2 (09:05→17:26)
[2022-07-12] MEDS: Senokot 8.6 MG TAB PO SCH ×2 (09:05→21:10)
[2022-07-12] MEDS: Ascorbic Acid 500 mg Chewable Tablet PO SCH ×2 (09:05→21:10)
[2022-07-12] MEDS: Lantiseptic Ointment 130 GM JAR TOP SCH ×2 (09:05→21:10)
[2022-07-12] MEDS: Mirtazapine 15 MG TAB PO SCH (21:10)
[2022-07-13] MEDS: Acetaminophen/Codeine 30-300mg Tablet PO SCH ×5 (00:24→23:31)
[2022-07-13] MEDS: Ferrous Sulfate 325 MG TAB PO SCH ×2 (08:35→17:25)
[2022-07-13] MEDS: Senokot 8.6 MG TAB PO SCH ×2 (08:36→20:46)
[2022-07-13] MEDS: Lantiseptic Ointment 130 GM JAR TOP SCH ×2 (08:36→20:48)
[2022-07-13] MEDS: Ascorbic Acid 500 mg Chewable Tablet PO SCH ×2 (08:36→20:46)
[2022-07-13] MEDS: Aspirin 81 mg Enteric Coated Tablet PO SCH ×2 (08:36→20:47)
[2022-07-13] MEDS: Mirtazapine 15 MG TAB PO SCH (20:47)
[2022-07-14] MEDS: Acetaminophen/Codeine 30-300mg Tablet PO SCH ×3 (05:29→17:31)
[2022-07-14] MEDS: Ascorbic Acid 500 mg Chewable Tablet PO SCH ×2 (08:13→21:16)
[2022-07-14] MEDS: Senokot 8.6 MG TAB PO SCH ×2 (08:13→21:16)
[2022-07-14] MEDS: Lantiseptic Ointment 130 GM JAR TOP SCH ×2 (08:13→21:16)
[2022-07-14] MEDS: Ferrous Sulfate 325 MG TAB PO SCH ×2 (08:13→17:32)
[2022-07-14] MEDS: Aspirin 81 mg Enteric Coated Tablet PO SCH ×2 (08:13→21:16)
[2022-07-14] MEDS: Mirtazapine 15 MG TAB PO SCH (21:16)
[2022-07-15] MEDS: Acetaminophen/Codeine 30-300mg Tablet PO SCH ×3 (00:45→12:16)
[2022-07-15 07:12] VITALS: BP 93/60; TEMP 98.2
[2022-07-15] MEDS: Ascorbic Acid 500 mg Chewable Tablet PO SCH (08:20)
[2022-07-15] MEDS: Ferrous Sulfate 325 MG TAB PO SCH (08:20)
[2022-07-15] MEDS: Aspirin 81 mg Enteric Coated Tablet PO SCH (08:20)
[2022-07-15] MEDS: Senokot 8.6 MG TAB PO SCH (08:20)
[2022-07-15] MEDS: Lantiseptic Ointment 130 GM JAR TOP SCH (08:20)
== END 2022-07-15 14:55 | disposition hospice, home (50) | DRG 560 ==
LOC: MADMS 17:43
PROVIDERS: ADMIT Family Medicine; ATTEND Family Medicine
DX: S72.141D Displaced intertrochanteric fracture of right femur, subsequent encounter for closed fracture with routine healing (principal); E44.0 Moderate protein-calorie malnutrition; F03.918 Unspecified dementia, unspecified severity, with other behavioral disturbance; R64 Cachexia; Z68.1 Body mass index [BMI] 19.9 or less, adult; R62.7 Adult failure to thrive; Z95.0 Presence of cardiac pacemaker; R53.1 Weakness; R53.81 Other malaise; R13.10 Dysphagia, unspecified; Z51.5 Encounter for palliative care; D64.9 Anemia, unspecified; K59.00 Constipation, unspecified; Z66 Do not resuscitate; I95.1 Orthostatic hypotension; Z88.8 Allergy status to other drugs, medicaments and biological substances; W18.30XD Fall on same level, unspecified, subsequent encounter; Z79.899 Other long term (current) drug therapy; Z79.82 Long term (current) use of aspirin; Z82.49 Family history of ischemic heart disease and other diseases of the circulatory system
CPT/HCPCS: 80048; 85025; 87811